=== PATIENT | female | born 1950 | race Caucasian/White ===

== ENCOUNTER 2022-12-04 09:12 | Inpatient (IN) | payer MEDICARE, MEDICAID ==
[2022-11-30 11:40] LABS: BASOPHILS % (AUTO) 0.8 % (0-1); EOSINOPHILS # (AUTO) 0.2 X10'3 (0-0.9); EOSINOPHILS % (AUTO) 4.1 % (0-6); LYMPHOCYTES # (AUTO) 1.4 X10'3 (1.1-4.8); LYMPHOCYTES % (AUTO) 24.8 % (21-51); MEAN CORPUSCULAR HEMOGLOBIN 32.7 PG (27.0-31.0); MEAN CORPUSCULAR HGB CONC 33.5 g/dL (33.0-36.5); MEAN CORPUSCULAR VOLUME 97.7 FL (78-98); MEAN PLATELET VOLUME 9.3 FL (7.4-10.4); MONOCYTES # (AUTO) 0.6 X10'3 (0-0.9); MONOCYTES % (AUTO) 11.2 % (2-12); NEUTROPHILS # (AUTO) 3.4 X10'3 (1.8-7.7); NEUTROPHILS % (AUTO) 59.1 % (42-75); PRE OP HEMATOCRIT 43.6 % (35.0-45.0); PRE OP HEMOGLOBIN 14.6 g/dL (12.0-16.0); PRE OP PLATELET COUNT 191 X10'3 (140-440); RED BLOOD COUNT 4.46 X10'6 (4.20-5.60); RED CELL DISTRIBUTION WIDTH 14.5 % (11.5-14.5)
[2022-11-30 11:42] LABS: PRE OP PROTIME 10.4 SECONDS (9.0-12.0)
[2022-11-30 11:43] LABS: ALBUMIN 4.3 G/DL (3.4-5.0); ALBUMIN/GLOBULIN RATIO 1.2 (1.1-1.5); ALKALINE PHOSPHATASE 75 IU/L (46-116); BLOOD UREA NITROGEN 17 MG/DL (7-18); BUN/CREATININE RATIO 18.5 (10.0-20.0); CALCIUM 9.9 MG/DL (8.5-10.1); CHLORIDE 102 MMOL/L (99-107); CREATININE 0.92 MG/DL (0.40-0.90); PRE OP ALT 25 U/L (30-65); PRE OP ANION GAP 10 (8-16); PRE OP AST 31 U/L (10-37); PRE OP BILIRUB, TOTAL 1.1 MG/DL (0.0-1.0); PRE OP GLUCOSE 103 MG/DL (70-104); PRE OP POTASSIUM 3.9 MMOL/L (3.4-5.1); PRE OP SODIUM 139 MMOL/L (135-145); TOTAL CARBON DIOXIDE 27.4 MMOL/L (24-32); TOTAL PROTEIN 7.9 G/DL (6.4-8.2); eGFR 60 ML/MIN
[~2022-12-04] VITALS: Ht 165.1 cm; Wt 82.2 kg
[2022-12-04] VITALS (19 sets, daily range): BP systolic 69–136; BP diastolic 41–93
[~2022-12-04 09:12] MED LIST: ALBU18HF2 IH; EYE VITAMIN; FLUT1BLS13 IH; albuterol 2.5 MG/3 ML nebule NEB ONE; cefazolin 2gm/D5W 100mL 100 ML IV ONE; famotidine 20mg tablet PO ONE; ringers solution, lacted 1,000 ML IV SCH
[2022-12-04] MEDS ORDERED: labetalol 20mg/4ml (5mg/ml) syringe IV PRN (10:50)
[2022-12-04] MEDS ORDERED: fentaNYL/PF 50MCG/1 ML 2ML syringe IV PRN ×2 (10:50)
[2022-12-04] MEDS ORDERED: hydrALAZINE 20mg/ml inj. IV PRN (10:50)
[2022-12-04] MEDS ORDERED: ondansetron/PF 4mg/2ml inj IV PRN ×4 (10:50→23:35)
[2022-12-04] MEDS ORDERED: morphine 4 MG/ML inj SYRINge IV PRN (10:50)
[2022-12-04] MEDS ORDERED: morphine 2 MG/ML inj. syringe IV PRN ×2 (10:50→22:35)
[2022-12-04] MEDS ORDERED: ringers solution, lacted 1,000 ML IV SCH ×2 (10:50→22:35)
[2022-12-04] MEDS ORDERED: dexamethasone sod phosphate 4mg/ml inj. ONE ×2 (11:36→21:25)
[2022-12-04] MEDS ORDERED: ePHEDrine 50MG/ML INJ. ONE ×3 (11:36→21:25)
[2022-12-04] MEDS ORDERED: dexmedetomidine 200mcg/2ml inj. IV ONE (11:36)
[2022-12-04] MEDS ORDERED: desflurane 240ml liquid inh. IH ONE (11:36)
[2022-12-04] MEDS ORDERED: BUPIVAcaine/PF 5 mg/ml 10ml ONE (13:21)
[2022-12-04] MEDS ORDERED: fentaNYL/PF 50MCG/1 ML 2ML syringe ONE ×4 (13:43→21:19)
[2022-12-04] MEDS ORDERED: midazolam 1 mg/ML 2ml injection ONE (13:44)
[2022-12-04] MEDS ORDERED: LIDOcaine 1%/PF 5ML 10 MG/ML VIAL ONE (13:58)
[2022-12-04] MEDS ORDERED: propofol inj 20 ML IV ONE (13:58)
[2022-12-04] MEDS ORDERED: LIDOcaine 1% 30ml preserv. free vial ONE (14:01)
[2022-12-04] MEDS ORDERED: ondansetron/PF 4mg/2ml inj ONE ×2 (14:04→21:25)
[2022-12-04] MEDS: potassium CL 20mEq in D5-1/2NS 1,000 ML IV SCH ×2 (15:40→23:40)
[2022-12-04] MEDS ORDERED: naloxone 0.4 mg/ml inj IV PRN ×2 (15:40→23:35)
--- NOTE | 2022-12-04 15:48 | NUR ---
Received from OR via HOSPITAL BED , accompanied by Anesthesiologist and report given by [facility] Anesthesiologist. PATIENT WAKING UP, NO S/S OF PAIN, V/S WNL, SCD ON , PIV 20G LEFT FOREARM, RIGHT CHEST DRESSING C/D/I WITH IRIS DRAINAGE. Addendum: 12/04/22 at 1607 by Faustino Bradley RN Amended: Links added.
[2022-12-04] MEDS ORDERED: albuterol 2.5 MG/3 ML nebule NEB PRN (16:00)
[2022-12-04] MEDS: HYDROmorph/NS 0.2 mg/ml PCA 100 ML IV SCH ×5 (16:24→23:00)
--- NOTE | 2022-12-04 16:48 | NUR ---
PATIENT HAS MET ALL CRITERIA FOR TRANSFER TO THE SURGICAL FLOOR. VSS. DRESSINGS INTACT. BED LOW, CALL LIGHT PRESENT AND 2 RAILS UP. RN PRESENT TO ACCEPT CARE OF PATIENT AND REPORT HAS BEEN CALLED. ALL QUESTIONS ANSWERED TO ACCEPTING RN. Addendum: 12/04/22 at 1656 by Faustino Bradley RN Amended: Links added.
--- NOTE | 2022-12-04 17:50 | NUR ---
Called for tele order. He made me aware he has also talked with Dr. Dawson to watch over patient due to HR and ETOH.
--- NOTE | 2022-12-04 18:40 | NUR ---
Dr. Prakash in to see patient this evening. Problems reprioritized. Patient report given, questions answered & plan of care reviewed with Azeb Bowie RN.
--- NOTE | 2022-12-04 18:45 | NUR ---
Patient in room [facility]. I have received report from MINNIE GUERRERO and had the opportunity to ask questions and assume patient care.
--- NOTE | 2022-12-04 20:25 | NUR ---
PATIENT'S DRESSING SITE NOTED WITH BLEEDING, BLOOD PRESSURE DOWN TO 74/51, IRIS DRAIN WITH BLOOD CLOT AND CHANGED WITH NEW ONE AND BLOOD DRIPPING TO THE TUBE, NS 250 ML BOLUS STARTED AND DRESSING REINFORCED. CALLED DR. FRYE AND WAS INFORMED ABOUT THE PATIENT AND SAID HE IS COMING TO SEE THE PATIENT.
--- NOTE | 2022-12-04 20:54 | NUR ---
DR. FRYE CAME TO SEE THE PATIENT WITH ORDER TO CONTINUE THE NS BOLUS AND PREPARE PATIENT TO GO BACK FOR SURGERY.
[2022-12-04] MEDS ORDERED: normal saline 1000ml 1,000 ML IVB ONE (20:55)
[2022-12-04] MEDS: budesonide 0.5mg/2ml UD nebule IH SCH (21:05)
--- NOTE | 2022-12-04 21:20 | NUR ---
PATIENT LEFT FOR OR IN A BED WITH OR TECH.
[2022-12-04] MEDS ORDERED: cefazolin 2gm/NS 100ml IVPB IV ONE (21:25)
[2022-12-04] MEDS ORDERED: sevoflurane 250ml liquid IH ONE (21:25)
[2022-12-04] MEDS ORDERED: epiNEPHrine 1 mg/ml 30ml MDV ONE (21:25)
[2022-12-04] MEDS ORDERED: propofol 10mg/ml 20ml vial IV ONE (21:25)
[2022-12-04] MEDS ORDERED: glycopyrrolate 0.2mg/ml inj ONE (21:25)
[2022-12-04] MEDS ORDERED: ceFAZolin 1000mg inj ONE ×2 (21:44)
[2022-12-04] MEDS ORDERED: tranexamic acid 100mg/ml inj. ONE (22:00)
[2022-12-04] MEDS ORDERED: HYDROmorphone/PF 0.2 MG/ML SYRINGE IV PRN ×2 (22:35)
[2022-12-04] MEDS ORDERED: rocuronium 10mg/ml inj IV ONE (22:48)
[2022-12-04] MEDS ORDERED: insulin regular, human U-100 3ml vial - multi-dose IV STA (23:56)
--- NOTE | 2022-12-04 23:58 | NUR ---
BLOOD SUGAR 187. INSULIN ORDERED
[2022-12-05] VITALS (19 sets, daily range): BP systolic 80–113; BP diastolic 41–75
--- NOTE | 2022-12-05 00:28 | NUR ---
BLOOD SUGAR IS 127 AFTER GIVING INSULIN 4 UNITS
--- NOTE | 2022-12-05 00:55 | NUR ---
PATIENT CAME BACK FROM RECOVERY ROOM AFTER EVACUATION OF BLOOD CLOTS WAS DONE BY DR. FRYE. PLACED COMFORTABLE IN BED. VITAL SIGNS MONITORED PER POST OP PROTOCOL.
[2022-12-05] MEDS: HYDROmorph/NS 0.2 mg/ml PCA 100 ML IV SCH ×15 (01:00→23:00)
[2022-12-05] MEDS: potassium CL 20mEq in D5-1/2NS 1,000 ML IV SCH ×3 (03:57→21:52)
--- NOTE | 2022-12-05 06:30 | NUR ---
Problems reprioritized. Patient report given, questions answered & plan of care reviewed with SHELLY GUERRERO.
[2022-12-05 07:41] LABS: BASOPHILS % (AUTO) 0.1 % (0-1); EOSINOPHILS % (AUTO) 0 % (0-6); HEMATOCRIT 27.7 % (35.0-45.0); HEMOGLOBIN 9.3 g/dl (12.0-16.0); LYMPHOCYTES # (AUTO) 0.4 X10'3 (1.1-4.8); LYMPHOCYTES % (AUTO) 6.3 % (21-51); MEAN CORPUSCULAR HEMOGLOBIN 33.3 PG (27.0-31.0); MEAN CORPUSCULAR HGB CONC 33.8 g/dL (33.0-36.5); MEAN CORPUSCULAR VOLUME 98.6 FL (78-98); MEAN PLATELET VOLUME 9.2 FL (7.4-10.4); MONOCYTES # (AUTO) 0.4 X10'3 (0-0.9); MONOCYTES % (AUTO) 5.9 % (2-12); NEUTROPHILS # (AUTO) 6.3 X10'3 (1.8-7.7); NEUTROPHILS % (AUTO) 87.7 % (42-75); PLATELET COUNT 124 X10'3 (140-440); RED BLOOD COUNT 2.81 X10'6 (4.20-5.60); WHITE BLOOD COUNT 7.1 X10'3 (4.5-11.0)
[2022-12-05] MEDS: multivitamins, therapeutics tablet PO SCH (07:41)
[2022-12-05 08:00] LABS: ALANINE AMINOTRANSFERASE 16 U/L (12-78); ALBUMIN 2.9 G/DL (3.4-5.0); ALBUMIN/GLOBULIN RATIO 1.2 (1.1-1.5); ALKALINE PHOSPHATASE 38 IU/L (46-116); AMYLASE 60 U/L (25-115); ANION GAP 4 (8-16); ASPARTATE AMINO TRANSFERASE 19 U/L (10-37); BILIRUBIN,TOTAL 0.5 MG/DL (0.1-1.0); BLOOD UREA NITROGEN 16 MG/DL (7-18); BUN/CREATININE RATIO 17.8 (10.0-20.0); CALCIUM 7.4 MG/DL (8.5-10.1); CHLORIDE 106 MMOL/L (99-107); GLUCOSE 214 MG/DL (70-104); LIPASE 98 U/L (73-393); MAGNESIUM 1.5 MG/DL (1.5-2.4); PHOSPHORUS 2.5 MG/DL (2.3-4.5); POTASSIUM 4.4 MMOL/L (3.5-5.1); SODIUM 136 MMOL/L (135-145); TOTAL CARBON DIOXIDE 26.1 MMOL/L (24-32); TOTAL PROTEIN 5.4 G/DL (6.4-8.2); eGFR 62 ML/MIN
[2022-12-05] MEDS: budesonide 0.5mg/2ml UD nebule IH SCH ×2 (08:46→20:00)
--- NOTE | 2022-12-05 12:49 | NUR ---
Page sent to CM: [id number] Dionicio Salinas: Robert suggesting possible short term rehab if patient qualifies. thanks, jenifer [phone]
--- NOTE | 2022-12-05 18:09 | NUR ---
Problems reprioritized. Patient report given, questions answered & plan of care reviewed with CESAR Alarcon.
--- NOTE | 2022-12-05 18:30 | NUR ---
Patient in room [facility]. I have received report from SHELLY GUERRERO and had the opportunity to ask questions and assume patient care.
[2022-12-06] MEDS: HYDROmorph/NS 0.2 mg/ml PCA 100 ML IV SCH ×6 (01:00→11:00)
[2022-12-06 06:38] VITALS: BP 91/45
[2022-12-06 07:03] LABS: BASOPHILS % (AUTO) 0.4 % (0-1); EOSINOPHILS # (AUTO) 0.1 X10'3 (0-0.9); EOSINOPHILS % (AUTO) 0.8 % (0-6); HEMATOCRIT 23.3 % (35.0-45.0); HEMOGLOBIN 7.8 g/dl (12.0-16.0); LYMPHOCYTES # (AUTO) 2.1 X10'3 (1.1-4.8); LYMPHOCYTES % (AUTO) 27.1 % (21-51); MEAN CORPUSCULAR HGB CONC 33.6 g/dL (33.0-36.5); MEAN CORPUSCULAR VOLUME 98.3 FL (78-98); MEAN PLATELET VOLUME 10.4 FL (7.4-10.4); MONOCYTES # (AUTO) 0.7 X10'3 (0-0.9); MONOCYTES % (AUTO) 8.7 % (2-12); NEUTROPHILS # (AUTO) 4.8 X10'3 (1.8-7.7); PLATELET COUNT 111 X10'3 (140-440); RED BLOOD COUNT 2.37 X10'6 (4.20-5.60); RED CELL DISTRIBUTION WIDTH 14.6 % (11.5-14.5); WHITE BLOOD COUNT 7.6 X10'3 (4.5-11.0)
[2022-12-06] MEDS: budesonide 0.5mg/2ml UD nebule IH SCH (07:17)
[2022-12-06] MEDS: multivitamins, therapeutics tablet PO SCH (07:38)
[2022-12-06] MEDS: potassium CL 20mEq in D5-1/2NS 1,000 ML IV SCH ×2 (07:40→15:40)
[2022-12-06 08:01] LABS: ALANINE AMINOTRANSFERASE 14 U/L (12-78); ALBUMIN 2.7 G/DL (3.4-5.0); ALBUMIN/GLOBULIN RATIO 1.1 (1.1-1.5); ALKALINE PHOSPHATASE 40 IU/L (46-116); AMYLASE 53 U/L (25-115); ANION GAP 7 (8-16); ASPARTATE AMINO TRANSFERASE 20 U/L (10-37); BILIRUBIN,TOTAL 0.3 MG/DL (0.1-1.0); BLOOD UREA NITROGEN 10 MG/DL (7-18); BUN/CREATININE RATIO 13.5 (10.0-20.0); CALCIUM 7.8 MG/DL (8.5-10.1); CHLORIDE 107 MMOL/L (99-107); CREATININE 0.74 MG/DL (0.40-0.90); GLUCOSE 114 MG/DL (70-104); LIPASE 65 U/L (73-393); MAGNESIUM 1.5 MG/DL (1.5-2.4); PHOSPHORUS 2.5 MG/DL (2.3-4.5); POTASSIUM 4.7 MMOL/L (3.5-5.1); SODIUM 137 MMOL/L (135-145); TOTAL CARBON DIOXIDE 23.5 MMOL/L (24-32); TOTAL PROTEIN 5.1 G/DL (6.4-8.2); eGFR 78 ML/MIN
--- NOTE | 2022-12-06 10:46 | NUR ---
performed dressing exchange trouble shooter right pectoral area. Incisional wound and periarea were normal temperature with minimal serosanguineous drainage. Area cleaned with NS and new dry dressing applied.
--- NOTE | 2022-12-06 11:13 | NUR ---
Student documentation: I have reviewed and agree with all interventions, assessments performed and documented by Ney student nurse.
[2022-12-06 11:51] VITALS: BP 98/42
[2022-12-06] MEDS ORDERED: PCA WASTE DOCUMENTATION 1 MG ML MC SCH (12:30)
[2022-12-06] MEDS ORDERED: oxyCODONE/APAP 10/325mg tablet PO PRN (12:50)
[2022-12-06] MEDS ORDERED: normal saline 500ml IV soln 500 ML IV ONE (13:30)
--- NOTE | 2022-12-06 13:34 | NUR ---
PAGER ID: [phone] MESSAGE: [id number] Dionicio Salinas: is patient okay by you to dc after bolus and iron infusion? thank you! jenifer [phone]
[2022-12-06] MEDS ORDERED: iron sucrose complex injection 500 MG in normal saline 250ml IV soln 250 ML IV ONE (13:35)
--- NOTE | 2022-12-06 13:52 | NUR ---
PAGER ID: [phone] MESSAGE: [id number] Dionicio Salinas: patient is requesting stool softener to dc with now. thanks, jenifer [phone]
[2022-12-06] MEDS ORDERED: docusate sod 100mg capsule PO ONE (14:30)
--- NOTE | 2022-12-06 15:03 | NUR ---
PAGER ID: [phone] MESSAGE: [id number] Dionicio Salinas: CHINMAY...iron is going to take 4hrs to infuse before patient can be discharged. thanks, jenifer [phone]
--- NOTE | 2022-12-06 16:00 | NUR ---
PAGER ID: [phone] MESSAGE: [id number] Brad, V: IV infiltrated 1/[address] through infusion, patient does not want another. can she leave on PO iron? jenifer [phone]
--- NOTE | 2022-12-06 16:48 | NUR ---
Patient stable and appropriate for discharge home with sister. IV x2 removed, compliance monitor removed. All discharge instructions and education given and reviewed with patient, all questions answered. additional dressing supplies given to patient, follow up scheduled. IRIS drain intact and patent. patient and sister educated on how to empty, and record drainage. returned demonstration and verbalized understanding.
[2022-12-09] MEDS ORDERED: thiamine 100mg tablet PO SCH (08:00)
[2022-12-09] MEDS ORDERED: folic acid 1mg tablet PO SCH (08:00)
== END 2022-12-06 16:45 | disposition home or self-care (01) | DRG 582 ==
LOC: PAS 09:12 → UNDOADMOB 17:24 → SUR 3N 17:24 → OBSVTOIN 23:38 → INTOOBSV 23:38 → SUR 3N 23:38 → UNDOADMOB 23:38
PROVIDERS: ADMIT Surgery; ATTEND Surgery
PROC: 0KXF0Z5 Transfer Right Trunk Muscle, Latissimus Dorsi Myocutaneous Flap, Open Approach (ICD-10-PCS; 2022-12-04)
PROC: 0H9T00Z Drainage of Right Breast with Drainage Device, Open Approach (ICD-10-PCS; 2022-12-04)
PROC: 0HBT0ZZ Excision of Right Breast, Open Approach (ICD-10-PCS; principal; 2022-12-04 13:36)
DX: C50.211 Malignant neoplasm of upper-inner quadrant of right female breast (principal); L76.22 Postprocedural hemorrhage of skin and subcutaneous tissue following other procedure; I49.3 Ventricular premature depolarization; Y83.8 Other surgical procedures as the cause of abnormal reaction of the patient, or of later complication, without mention of misadventure at the time of the procedure; Y92.230 Patient room in hospital as the place of occurrence of the external cause; Z60.2 Problems related to living alone; D64.9 Anemia, unspecified; I95.9 Hypotension, unspecified; J45.909 Unspecified asthma, uncomplicated; Z80.3 Family history of malignant neoplasm of breast; Z80.49 Family history of malignant neoplasm of other genital organs; Z82.3 Family history of stroke; Z88.2 Allergy status to sulfonamides; Z88.8 Allergy status to other drugs, medicaments and biological substances; Z90.49 Acquired absence of other specified parts of digestive tract; Z98.42 Cataract extraction status, left eye; Z98.41 Cataract extraction status, right eye
CPT/HCPCS: 36415; 71046; 80053; 82150; 82948; 83690; 83735; 84100; 85025; 85610; 85730; 87081; 88307; 94640; 94760; 97116; 97161; 97530; A4215; A4338; A4618; A6223; A6258; A6449; A7000; G0378; J0171; J0690; J1100; J1170; J1756; J2250; J2405; J2704; J3010; J3480; J3490; J7030; J7040; J7050; J7120